=== PATIENT | male | born 1990 | race Caucasian/White ===

== ENCOUNTER 2017-03-06 20:44 | Emergency (ER) | payer OTHER ==
[~2017-03-06] VITALS: Ht 180.3 cm; Wt 70.3 kg
[2017-03-06 20:54] VITALS: BP_SYST 120
--- NOTE | 2017-03-06 21:13 | NUR ---
Patient to ER bed 3 to gown for evaluation. Side rails up. Report given to JACINTO ALLEN.
--- NOTE | 2017-03-06 21:15 | NUR ---
dr. avery at bedside examining the pt.
--- NOTE | 2017-03-06 21:17 | NUR ---
pt. to er [id number] from home c/o sinus and headache for 06/07 for a day states that he has been dealing with allergies for a weak now, c/o body aches, clear speech, follows commands, vitals WNL, lungs clear, denies chest pain
[2017-03-06] MEDS ORDERED: ACETAMINOPHEN 500 MG TABLET PO ONE (21:30)
[2017-03-06 21:57] VITALS: BP_SYST 121
--- NOTE | 2017-03-06 21:57 | NUR ---
Patient given written and verbal discharge instructions and verbalizes understanding. ER MD discussed with patient the results and treatment provided. Patient in stable condition. ID arm band removed. Rx of given. Patient educated on pain management and to follow up with PMD. Pain Scale 4/10. Opportunity for questions provided and answered.
== END 2017-03-06 21:57 | disposition home or self-care (01) ==
LOC: SED 20:44
DX: J06.9 Acute upper respiratory infection, unspecified (principal)
CPT/HCPCS: 99283

== ENCOUNTER 2018-05-21 16:50 | Emergency (ER) | payer OTHER ==
[~2018-05-21] VITALS: Ht 180.3 cm; Wt 72.6 kg
[2018-05-21 16:57] VITALS: BP_SYST 139
[2018-05-21 17:30] LABS: BILIRUBIN,URINE NEGATIVE (NEGATIVE); BLOOD, URINE NEGATIVE (NEGATIVE); CLARITY/URINE CLEAR (CLEAR); COLOR,URINE YELLOW (YELLOW); GLUCOSE,URINE NEGATIVE (NEGATIVE); KETONES,URINE NEGATIVE (NEGATIVE); LEUKOCYTE ESTERASE ,URINE NEGATIVE (NEGATIVE); NITRITE, URINE NEGATIVE (NEGATIVE); PROTEIN URINE NEGATIVE (NEGATIVE); UROBILINOGEN,URINE 0.2 (0.2-1.0)
[2018-05-21 18:09] VITALS: BP_SYST 128
== END 2018-05-21 18:09 | disposition home or self-care (01) ==
LOC: SED 16:50
DX: R30.0 Dysuria (principal); R03.0 Elevated blood-pressure reading, without diagnosis of hypertension
CPT/HCPCS: 81003; 99283